=== PATIENT | male | born 1990 | race Caucasian/White ===

== ENCOUNTER 2023-01-18 05:49 | Observation (INO) ==
--- NOTE | 2023-01-11 10:46 | Anesthesiology Consultation ---
Date of Service January 11, 2023 Assessment & Plan (1) Encounter for pre-operative examination: Plan Per electromechanical assembler on 01/11/2023: No known infectious disease contacts, current infectious disease symptoms in past 10 days or COVID positive test result in the past 90 days. Chart Review Chart Review: Acceptable Risk for Surgery and Patient NOT seen in Pre Admission Testing History Surgery Operation Date: 01/18/23 07:30 Proposed Procedures p Medical Panniculectomy - Luz Maria Ruiz MD s Cosmetic Bilateral Gynecomastia Correction with Liposuction of Trunk - Luz Maria Ruiz MD Height/Weight Height: 5 ft 8 in Weight: 76.204 kg Allergies Allergy/AdvReac Type Severity Reaction Status Date / Time No Known Allergies Allergy Verified 01/11/23 10:24 Medications Home Medications Medication Instructions Recorded Confirmed Last Taken escitalopram oxalate 10 mg tablet 10 mg PO QAM 06/06/20 01/11/23 06/17/20 08:00 (Lexapro) calcium citrate 315 mg-vitamin D3 2 tab PO BID 11/04/21 01/11/23 Unknown 5 mcg (200 unit) tablet (Calcium Citrate + D) cholecalciferol (vitamin D3) 125 125 mcg PO QAM 11/04/21 01/11/23 Unknown mcg (5,000 unit) tablet (Vitamin D3) cyanocobalamin (vitamin B-12) 1,000 mcg IM Q90D 11/04/21 01/11/23 Unknown 1,000 mcg/mL injection solution iron,carbonyl 65 mg-vitamin C 125 1 tab PO BID 11/04/21 01/11/23 Unknown mg tablet,delayed release (Vitron-C) multivitamin 1 tab PO BID 11/04/21 01/11/23 Unknown simethicone 125 mg tablet 125 mg PO UD PRN flatulence 11/04/21 01/11/23 Unknown vitamin A 3,000 mcg (10,000 unit) 10,000 unit PO BID 11/04/21 01/11/23 Unknown capsule oxycodone-acetaminophen 5 mg-325 1 tab PO Q4H PRN pain #18 tabs 12/13/22 12/13/22 Unknown mg tablet (Endocet) Past Medical History Medical History Morbid obesity with BMI of 40.0-44.9, adult History of anesthesia reaction became restless when waking after gastric bypass Abdominal pannus Anemia on vitron C Depression Anxiety Past Family History Family History Other No family history of adverse response to anesthesia Past Surgical History Surgical History Hx of gastric bypass Rou-en-y 08/2020, [place] History of esophagogastroduodenoscopy (EGD) H/O wisdom tooth extraction S/P inguinal hernia repair at age 6 History of adenoidectomy History of tonsillectomy Social History Smoking Status: Former smoker tobacco type: cigarettes Do You Dip or Chew Tobacco: No Smoking End Date: years ago Hx Alcohol Use: Yes Alcohol type: wine alcohol intake frequency: holidays/special occasions only Hx Substance Use: No substance use type: does not use Lab Results Anesthesia Preop Results Results Anesthesia Widget: WBC 5.78 K/ul (4.8-10.8) 12/13/22 Hgb 14.8 g/dl (14.0-18.0) 12/13/22 Hct 42.7 % (42.0-52.0) 12/13/22 Plt 261 K/uL (130-400) 12/13/22 Na 137 mmol/L (136-145) 12/13/22 K 4.1 mmol/L (3.5-5.1) 12/13/22 Cl 107 mmol/L (98-107) 12/13/22 CO2 26 mmol/L (21-32) 12/13/22 BUN 11 mg/dl (6-23) 12/13/22 Creat 0.65 mg/dl (0.6-1.4) 12/13/22 Glucose Level 61 mg/dl (70-99(Fasting)) L 12/13/22 PT 10.5 Seconds (9.0-12.0) 12/13/22 INR 1.0 (0.9-1.1) 12/13/22
[2023-01-18] MEDS ORDERED: LR 15ML/HR IV SCH (06:00)
[2023-01-18] MEDS ORDERED: TRANEXAMIC ACID / 0.7% NACL 1,000 MG/100 ML BAG IV SCH (06:00)
[2023-01-18] MEDS ORDERED: ceFAZolin 2000MG 2,000 MG/15 ML SYR IV SCH (06:00)
[2023-01-18] MEDS ORDERED: ONDANSETRON INJ 2 MG/ML 2 ML VIAL IV PRN ×2 (06:35→12:30)
[2023-01-18] MEDS ORDERED: fentaNYL citrate PF 100 MCG/2 ML VIAL IV PRN (06:35)
[2023-01-18] MEDS ORDERED: HYDROmorphone INJ 1 MG/ML SYRINGE IV PRN (06:35)
[2023-01-18] MEDS ORDERED: ePHEDrine sulfate 50 MG/ML AMP IV PRN (06:35)
[2023-01-18] MEDS ORDERED: ATROPINE SULFATE 0.1 MG/ML 10ML SYR IV PRN (06:35)
[2023-01-18] MEDS ORDERED: ROCURONIUM BROMIDE 10 MG/ML 5 ML VIAL IV ONE (06:51)
[2023-01-18] MEDS ORDERED: ONDANSETRON INJ 2 MG/ML 2 ML VIAL ONE (06:51)
[2023-01-18] MEDS ORDERED: PROPOFOL IV EMULSION 10 MG/ML 20 ML VIAL IV ONE (06:51)
[2023-01-18] MEDS ORDERED: LIDOCAINE 2% 2 ML VIAL/AMP(20MG/ML) INFIL ONE (06:51)
[2023-01-18] MEDS ORDERED: MIDAZOLAM HCL 1 MG/ML 2ML VIAL ONE (06:52)
[2023-01-18] MEDS ORDERED: HYDROmorphone INJ 2 MG/ML SYR/VIAL ONE (06:52)
[2023-01-18] MEDS ORDERED: fentaNYL citrate PF 100 MCG/2 ML VIAL ONE (06:52)
[2023-01-18] MEDS ORDERED: SUGAMMADEX SODIUM 200 MG/2 ML VIAL IV ONE (06:56)
[2023-01-18] MEDS ORDERED: ACETAMINOPHEN 1000 MG/100 ML IV IV ONE ×2 (06:59→13:24)
--- NOTE | 2023-01-18 07:02 | History & Physical Bridge Note ---
Date of Service January 18, 2023 History & Physical Bridge Note I have examined the patient, reviewed the History & Physical and in the interval since the performance of the History & Physical I have noted the following changes of clinical significance: no changes noted
[2023-01-18] MEDS ORDERED: BUPIVACAINE 0.25% PF 30 ML VIAL ONE (07:27)
[2023-01-18] MEDS ORDERED: EpINEphrine HCL INJ 1 MG/ML 1ML SYRINGE ONE (07:29)
[2023-01-18] MEDS ORDERED: LIDOCAINE 1% LOCAL 20 ML VIAL ONE ×3 (08:02→10:07)
[2023-01-18] MEDS ORDERED: EPINEPHrine INJ 1 MG/ML AMP ONE ×2 (08:02→10:07)
[2023-01-18] MEDS ORDERED: ceFAZolin 1000MG 1,000 MG/7.5 ML SYR IV ONE (09:25)
[2023-01-18] MEDS: LIDOCAINE 1%/EPINEPHRINE 1:100,000 20 ML VIAL ONE ×2 (10:45→12:39)
[2023-01-18] MEDS ORDERED: ceFAZolin 330 MG/ML 1 GM VIAL ONE (11:42)
[2023-01-18] MEDS ORDERED: MoRPHine SULFATE 4 MG/ML 1 ML CARP\\VIAL IV PRN (12:30)
[2023-01-18] MEDS ORDERED: MoRPHine SULFATE 2 MG/ML CARP IV PRN (12:30)
[2023-01-18] MEDS ORDERED: oxyCODONE/ACETAMINOPHEN 5mg/325mg TAB PO PRN ×2 (12:30)
[2023-01-18] MEDS ORDERED: diphenhydrAMINE 50 MG/ML VIAL IV PRN (12:30)
[2023-01-18] MEDS ORDERED: diphenhydrAMINE Capsule 25 MG CAP PO PRN (12:30)
[2023-01-18] MEDS ORDERED: LORazepam 0.5 MG TAB PO PRN (12:30)
[2023-01-18] MEDS ORDERED: PROMETHAZINE HCL 12.5 MG in SODIUM CHLORIDE 0.9% 50 ML IV PRN (12:30)
[2023-01-18] MEDS ORDERED: LACTATED RINGER'S 1,000 ML IV SCH (12:30)
[2023-01-18] MEDS ORDERED: TRANEXAMIC ACID 100 MG/ML 10 ML VIAL IV ONE (13:12)
--- NOTE | 2023-01-18 15:26 | Post Operative Brief Note ---
PG Immediate Post Op with CF Date of Surgery January 18, 2023 Pre & Post Diagnosis Operation Date: 01/18/23 07:30 Pre-Op Diagnosis: Abdominal Pannus, Encounter for Cosmetic Procedure Post-Op Diagnosis: Abdominal Pannus, Encounter for Cosmetic Procedure I identified the patient and participated in the time-out.: Yes Procedure Operation Date: 01/18/23 07:30 Actual Procedures p Medical Panniculectomy(Not Applicable) - Luz Maria Ruiz MD s Cosmetic Bilateral Gynecomastia Correction with Liposuction of Alex nk(Bilateral) - Luz Maria Ruiz MD Surgeon Luz Maria Ruiz MD Manager Of Financial Reporting Vicki Luciano PA-C Estimated Blood Loss 50 Findings Consistent with Post-Op Diagnosis Specimens Specimen Description: A. Left breast tissue (fresh) B. Right breast tissue (fresh) C. Abdominal Pannus (fresh) Drains Reed Catheter and Fredi-Cleary Drain (4 total)
--- NOTE | 2023-01-18 16:07 | Anesthesiology Progress Note ---
Date of Service January 18, 2023 Anesthesia Post Procedure Vital Signs Vital Signs: Temp Pulse Resp BP Pulse Ox O2 Del Method O2 Flow Rate 01/18/23 16:05 97.0 F L 68 13 134/76 97 Room Air 0 01/18/23 15:55 67 14 135/73 100 Oxymask 2 01/18/23 15:45 97.0 F L 71 22 136/78 100 Oxymask 4 01/18/23 15:35 71 12 129/74 99 Oxymask 6 01/18/23 15:29 95.7 F L 72 12 136/67 99 Oxymask 10 01/18/23 06:35 18 98 Room Air Pain Intensity Abdomen: Pain Intensity: 2 Transfer of Care Handoff Completed per policy Notes Mental Status: alert / awake / arousable and participated in evaluation Patient Amnestic to Procedure: Yes Nausea / Vomiting: adequately controlled Pain: adequately controlled Airway Patency, RR, SpO2: stable & adequate BP & HR: stable & adequate Hydration State: stable & adequate Anesthetic Complications: no major complications apparent and Pt Satisfied with anesthetic care
--- NOTE | 2023-01-18 16:24 | Operative Report ---
PG Post Operative Report Pre & Post Diagnosis Operation Date: 01/18/23 07:30 Pre-Op Diagnosis: Abdominal Pannus, Encounter for Cosmetic Procedure Post-Op Diagnosis: Abdominal Pannus, Encounter for Cosmetic Procedure I identified the patient and participated in the time-out.: Yes Procedure Operation Date: 01/18/23 07:30 Actual Procedures p Medical Panniculectomy(Not Applicable) - Luz Maria Ruiz MD s Cosmetic Bilateral Gynecomastia Correction with Liposuction of Trunk(Bilateral) - Luz Maria Ruiz MD Surgeon Luz Maria Ruiz MD Gymnastics Coach Vicki Luciano PA-C Estimated Blood Loss 50 Findings Consistent with Post-Op Diagnosis Specimens Bilateral breast tissue, abdominal pannus Drains STEPHANIE x4 Anesthesia Type General Complications none Indications status post massive weight loss, with large overhanging abdominal pannus, gynecomastia, desiring correction. Description of Procedure The risks, benefits, alternatives of the procedure were explained to the patient agreed and signed consent. He was marked in the preoperative holding area. He was brought to the operating room where she was positioned supine and placed under general anesthesia without incident. Reed catheter was placed. Surgical sites of the breasts and abdomen were prepped and draped sterilely, timeout procedure was performed. I began with the left side. 1% lidocaine with epinephrine was used to anesthetize the planned incisions as well as the breast parenchyma and inframammary fold. I made with a U-shaped infra-areololar incision, with about a 1 cm extension medially and laterally onto the chest w all. This incision was made with a 15 blade scalpel, deepened with electrocautery. I created a 2 cm in thickness flap posterior to the nipple, and then using retractors and an Allis clamp, I then began dissection of the breast tissue first superiorly and medially, creating a uniform flap at the level of superficial fascia, then carrying this incision laterally toward the axillary tail, then inferiorly toward the inframammary fold. This was performed only in the area of well-defined apparent glandular breast tissue. I then excised to the breast tissue off of the pectoralis fascia leaving the fascia intact. Breast tissue was withdrawn through the nipple areolar complex incision. Given the patient's obese body habitus, I then elected to perform suction assisted lipectomy to the remaining superior, medial, inferior, and lateral chest in order to thin out the adipose tissue. Per my discussion with the patient this morning, I did also elect to perform suction assisted lipectomy of the lateral chest toward the axilla, where there was significant redundant skin and subcutaneous fat. 1% lidocaine with epinephrine was used to anesthetize the planned stab access incisions, and 3 small stab incisions were placed. A total of 490 cc of tumescent solution was used to infiltrate the area of planned liposuction. A 3 mm cannula was selected. Tissue was pre-tunneled until the cannula was easily passed. Suction was applied and the cannula was passed in a fanning method from all 3 access incisions as well as the nipple areolar complex incision until there was uniform pinch, and bloody aspirate. Excess fluid was expressed from the incision sites and the incisions were closed using 5-0 nylon interrupted suture. Hemostasis was achieved with electrocautery. I then palpated the flaps, identified any areas of residual breast tissue and thickness and these were excised using an Allis clamp and electrocautery. I did use one of the access incisions to place a 15 [place]an Isiah drain as well which was sutured into place using 3-0 nylon suture. The wound was irrigated with saline, packed with a lap sponge soaked with saline and marcaine while I began the right side. The procedure was similarly performed on the right side, with total tumescent infiltrated 510 cc, about 550 cc aspirated out. Endpoint of Lipo aspiration was uniform pinch, symmetry between the 2 sides, and bloody drainage. Total Lipo aspirate volume at completion of chest liposuction was approximately 1100 cc. The nipple was then inset reapproximating the underlying subcutaneous tissue with 2-0 Vicryl suture to reapproximate cutaneous tissue, 3-0 PDS interrupted dermal suture to reapproximate dermis. The remainder of the wound was closed using 3-0 PDS superficial dermal sutures followed by 3-0 Monocryl running subcuticular suture. Dermabond was applied to the incision. Following the procedure, there was excellent symmetry between the 2 breasts and lateral chest. Attention was then turned to the abdomen. I began with suction assisted lipectomy of the abdomen. 1% lidocaine with epinephrine was used to anesthetize the planned stab incisions, and several small stab incisions were placed, with a total of 4 being placed within the planned pannus resection, and 8 remaining (4 per side). A total of 1500 cc of tumescent solution was used to infiltrate the area of planned liposuction of the epigastric region of the abdomen. A 3 mm cannula was selected. Tissue was pre-tunneled until the cannula was easily passed. Suction was applied and the cannula was passed in a fanning method from all 3 access incisions until there was uniform pinch, and bloody aspirate. Excess fluid was expressed from the incision sites and the incisions were closed using 5-0 nylon interrupted suture. Total abdominal lipo aspirate volume was 1400 cc. At this point, I began the insurance portion of the procedure (panniculectomy). I reassessed my lower horizontal abdominal incision. Incision was marked bilaterally to the ASIS. I began by injecting 1% lidocaine with epinephrine along the planned incision. The lower abdominal incision was made using a 15-blade scalpel to incise epidermis and superficial dermis followed by electrocautery to incise deep dermis, subcutaneous fat, Nadeem's fascia down to the abdominal wall. Care was taken to bevel superiorly in order to avoid encountering the inguinal region. Electrocautery was used to elevate the anterior abdominal skin flap ligating the perforating vessels with 3-0 Vicryl ties and electrocautery. Dissection was carried up to the level of the umbilicus in the midline. At this point, a 15-blade scalpel was used to circumscribe the umbilicus. A vertical midline incision was then made from the incision to the umbilicus and divided in the midline using electrocautery. The umbilicus was then dissected out using electrocautery down to abdominal wall. The umbilical stalk appeared viable throughout the procedure. In order to facilitate inset of the umbilicus, dissection was continued for about an additional 5 cm superior to the umbilicus. At this point, the bed was flexed and the mid portion of the superior skin flap was inset in the midline using 2-0 Vicryl suture. Skin flaps were marked for excision. A 15-blade scalpel was used to make these incisions and the incision was deepened through dermis, subcutaneous fat, Nadeem's fat using electrocautery. Subscarpal fat was resected directly. Prior to closure, a total of 10 mL of 0.25% Marcaine plain were injected into the fascia as well as along the incisions. A 15 [place]an Isiah drains were placed in the wound bed and brought out through a separate stab incision in the pubic region. The drains were sutured into place using 3-0 nylon. The umbilicus was brought out through an inverted, rounded triangular incision in the abdominal wall. This was performed using a 15-blade scalpel. Wound closure was then begun lateral to medial using 2-0 Vicryl Nadeem's fascia sutures, 2-0 Vicryl deep dermal sutures, 2-0 PDO running superficial Quill suture, 3-0 Monocryl running subcuticular suture. Umbilicus was brought out through the inverted triangle incision and was sutured into place using 4-0 chromic half buried horizontal mattress sutures. The umbilicus was dressed using Xeroform and the incision was dressed using a Provena wound vac and abdominal binder. Dry dressings, reston foam, and abdominal binder were placed to the chest. The procedure was tolerated well. The patient was awakened and transferred to recovery in satisfactory condition. Vicki Luciano was present and scrubbed throughout the procedure up until closure and was instrumental in providing retraction of the pannus and achieving hemostasis, as well as assisting in closure of the chest I attest to the content of the Intraoperative Record and any orders documented therein. Any exceptions are noted below: Nursing documentation of in/out for liposuction is incorrect. Nursing notes reflect correctly the in volume, out volume appears to be taken from tumescent pump, not suction canisters. I did personally estimate output after completion of suction of the chest as well as the abdomen and numbers reflected in this operative report should be assumed to be correct. Charge nurse was contacted regarding this.
[2023-01-18] MEDS: ceFAZolin 2000MG 2,000 MG/15 ML SYR IV SCH (17:24)
[2023-01-18] MEDS: ACETAMINOPHEN 325 MG TAB PO PRN (22:50)
[2023-01-19] MEDS: ceFAZolin 2000MG 2,000 MG/15 ML SYR IV SCH (00:40)
[2023-01-19] MEDS: ACETAMINOPHEN 325 MG TAB PO PRN (05:14)
--- NOTE | 2023-01-19 08:25 | Surgery Progress Note ---
Date of Service January 19, 2023 Assessment & Plan (1) Abdominal pannus: Plan: DC home today, office follow-up tomorrow. Post-op restrictions reviewed. Admission and Anticipated Discharge Date Admission Date: January 18, 2023 Subjective Joel is doing well- murray removed this AM and he was able to void. He has ambulated and is tolerating a regular diet. Pain is controlled. Physical Exam Physical Exam: chest and abdominal binder in place. drains with serosang output- no concern for active bleeding. wound vac to suction. Results & Data Vital Signs (Past 12 Hours) Vital Signs Temp Pulse Pulse Resp BP Pulse Ox O2 Del Method 01/19/23 08:06 37.0 C 86 16 108/68 95 Room Air 01/19/23 07:54 Room Air 01/19/23 04:49 37.4 C 87 18 101/60 94 Room Air 01/19/23 00:35 37.5 C 83 18 117/68 95 Room Air PG Care Time/CCT Total # of Minutes Spent Total Time Spent with Patient: Total time spent is greater than 50% in coordination of care (as documented) at patient's floor/unit and/or counseling patient: Coding Level of Care Code 86117 Post Operative Follow-Up Diagnoses Abdominal pannus E65
[2023-01-19] MEDS ORDERED: MULTIVITAMIN TAB PO SCH (09:00)
[2023-01-19] MEDS ORDERED: ESCITALOPRAM OXALATE 10 MG TAB PO SCH (09:00)
--- NOTE | 2023-01-19 16:09 | Discharge Summary ---
Date of Service January 19, 2023 Admission HPI Per Admitting Provider History of significant weight loss, symptomatic abdominal pannus. Admission Exam Per Admitting Provider large abdominal pannus, gynecomastia Principal Diagnosis abdominal pannus Discharge Exam chest and abdominal binder in place. drains with serosang output- no concern for active bleeding. wound vac to suction. Discharge Data Allergies Allergy/AdvReac Type Severity Reaction Status Date / Time No Known Allergies Allergy Verified 01/11/23 10:24 Procedures Performed Operation Date: 01/18/23 07:30 Actual Procedures p Medical Panniculectomy(Not Applicable) - Luz Maria Ruiz MD s Cosmetic Bilateral Gynecomastia Correction with Liposuction of Trunk(Bilateral) - Luz Maria Ruiz MD Hospital Course (1) Abdominal pannus: Patient presented to [facility] with history of abdominal pannus and gynecomastia. He was taken to the OR and underwent correction of gynecomastia, suction assisted lipectomy of the abdomen, panniculectomy. There were no intraoperative complications. He was taken to recovery and transferred to med/surg for observation. On POD#1, he was feeling well. He was tolerating a regular diet and ambulating. He was able to void after catheter was removed. On exam, his vitals were stable. His incisions were CDI. His drains had appropriate output. Wound vac was held to suction. He was discharged home with instructions to follow-up in the office in one day. Total Time Total Time Spent Total Time Spent (In Minutes): 15 Total Time Includes: Examination of the Patient, Discharge Planning, Medication Reconciliation and Communication With Other Providers Discharge Plan Discharge Items Patient Disposition: Home - Self-Care Reason For Visit: Abdominal Pannus, Encounter for Cosmetic Procedure Discharge Diagnosis: s/p correction of gynecomastia and panniculectomy with liposuction of trunk Activity: As commented below Non-emergency contact: Surgeon Call non-emergency contact if: you have any medication questions, your pain is not controlled, you have a fever, your wound has increased redness and your wound has increased drainage Follow-up/Referrals: Vicki Luciano PA-C [Physician Blood Donor Unit Assistant] - 01/20/23 4:00 pm Rosalino Glover CRNP [Primary Care Provider] - Diet: Regular Addtl Attending Provider Instructions: ACTIVITY RECOMMENDATIONS: __Normal activities _x_No bending, lifting or straining __No driving __Driving allowed when you are off pain medications _x_Walking permitted __You should have help at home for ___ days DRESSINGS: __No dressings required _x_Keep dressings dry/in place until first office visit __Remove dressings ___ and leave dressings off __Apply ice ___ days __Remove dressings and reapply garment __Apply antibiotic ointment (Bacitracin, Neosporin, etc) to wounds 3-4 times/day for 10 days BATHING: _x_Keep dressings dry _x_Sponge bathing permitted away from surgical dressings __Showering permitted _x_No swimming, hot tubs or soaking in a tub MEDICATIONS: Resume previous medications unless instructed otherwise by your surgeon. _x_Do not use aspirin, Motrin, Advil or Ibuprofen as these may promote bleeding. Please use Tylenol. _x_Prescription(s) provided: pain medication was provided at your last office visit OTHER INSTRUCTIONS: _x_Record drain output 2-3 times per day SPECIAL CARE INSTRUCTIONS: * It is normal to have a mild fever after surgery. If your temperature is higher than 101.5 degrees F, please call the office at [phone]. * Constipation is a typical side effect of pain medication. An [id number] stool softener will help relieve this. * Leaking around surgical drains may occur and should not cause concern. Sometimes these drains become clogged. If this happens, remove the bulb and milk the clot out of the tube, then replace the bulb. * Drainage from wounds after liposuction is normal and should be expected. Garments will become soiled. You should protect furniture and bedding. This drainage should mostly subside within 2-3 days. Leave garments in place unless instructed to remove them. * If you have unusual drainage from a wound or are concerned you have an infection or have any questions or concerns, please call the office at [phone]. FOLLOW UP VISIT: If not already scheduled, please call the office, , when you return home after surgery to schedule an appointment to be seen in _1__ days. Pending Studies at Discharge: Yes Stand-Alone Forms: My [facility], Pain - Opioid Pain Management, Smoking Cessation Medications and DC Order Prescriptions: Continued oxycodone-acetaminophen [Endocet] 5-325 mg tablet 1 tab PO Q4H PRN (Reason: pain) Qty: 18 0RF Rx Instructions: initial therapy [id number] Dr. Ruiz vitamin A 10,000 unit Capsule 10,000 unit PO BID Hold Instructions: surgery cyanocobalamin (vitamin B-12) 1,000 mcg/mL Solution 1,000 mcg IM Q90D Hold Instructions: surgery simethicone 125 mg Tablet 125 mg PO UD PRN (Reason: flatulence) Hold Instructions: surgery multivitamin Tablet,Chewable 1 tab PO BID Hold Instructions: surgery calcium citrate-vitamin D3 [Calcium Citrate + D] 315 mg-5 mcg (200 unit) Tablet 2 tab PO BID Hold Instructions: surgery cholecalciferol (vitamin D3) [Vitamin D3] 125 mcg (5,000 unit) Tablet 125 mcg PO QAM Hold Instructions: surgery Vitron-C 65 mg iron- 125 mg Tablet,Delayed Release (/Ec) 1 tab PO BID Hold Instructions: surgery escitalopram oxalate [Lexapro] 10 mg Tablet 10 mg PO QAM Discharge Orders: Discharge Order (Routine); Ordered 01/19/23 Ordered By: Vicki Luciano Admission Data Admit Date/Time: 01/18/23 12:35 Attending Provider: Luz Maria Ruiz Admit Provider: Luz Maria Ruiz Primary Care Provider: Rosalino Glover Other Interventions: Discharge Summary Assessment (RN) Last Done: 01/19/23 09:20 Coding Level of Care Code 64663 OBS Care - Discharge Diagnoses Abdominal pannus E65
== END 2023-01-19 11:10 | disposition home or self-care (01) ==
LOC: 3E 05:49 → ASU 05:49